=== PATIENT | male | born 1975 | race Caucasian/White ===

== ENCOUNTER 2016-06-14 19:59 | Inpatient (IN) | payer MEDICAID ==
[~2016-06-14] VITALS: Ht 167.6 cm; Wt 102.1 kg
[2016-06-14] MEDS ORDERED: OPTIRAY 350 100 ML VIAL HMH IV ONE (20:00)
[2016-06-14] MEDS ORDERED: ASPIRIN 81 MG CHEW TAB ONE (21:48)
[2016-06-14] MEDS ORDERED: SALINE FLUSH 10 ML FLUSH PRN (22:35)
[2016-06-14] MEDS ORDERED: ACETAMINOPHEN 325 MG TAB PO PRN (22:35)
[2016-06-14] MEDS ORDERED: LORAZEPAM 2 MG/ML VIAL ONE (22:40)
[2016-06-14] MEDS ORDERED: LORAZEPAM 2 MG/ML VIAL IV PRN (22:50)
[2016-06-14] MEDS ORDERED: ONDANSETRON 4 MG VIAL IV PRN (22:50)
[2016-06-14] MEDS ORDERED: D5-1/2-NS W/KCL 20MEQ/L 1,000 ML IV SCH (22:50)
[2016-06-14] MEDS ORDERED: FOLIC ACID INJ 1 MG in SODIUM CHLORIDE 0.9% 50 ML IV ONE (22:50)
[2016-06-14] MEDS: Atorvastatin 20 MG TAB PO SCH (22:55)
[2016-06-15] VITALS (14 sets, daily range): BP systolic 157–201; RESP 16–24; TEMP 97.6–98.6; Ht 167.6 cm; Wt 102.1 kg
[2016-06-15] MEDS ORDERED: D5-1/2-NS W/KCL 20MEQ/L 1,000 ML IV SCH (01:05)
[2016-06-15] MEDS: Atorvastatin 20 MG TAB PO SCH ×2 (01:40→20:10)
[2016-06-15] MEDS: SODIUM CHLORIDE 0.9% FLUSH BAG 500 ML IV SCH ×2 (01:40→20:07)
[2016-06-15] MEDS: SALINE FLUSH 10 ML FLUSH SCH ×2 (08:00→20:11)
[2016-06-15] MEDS ORDERED: MISSING DOSE XX ONE (08:05)
[2016-06-15] MEDS: Aspirin 325 MG TAB PO SCH (08:30)
[2016-06-15] MEDS: MULTIVITS/MINERALS (THERAGRAN M) TAB PO SCH (08:30)
[2016-06-15] MEDS: FOLIC ACID 1 MG TAB PO SCH (08:30)
[2016-06-15] MEDS ORDERED: METOPROLOL XL 25 MG TAB PO SCH (09:00)
[2016-06-15] MEDS: amLODIPine 10 MG TAB PO SCH (10:21)
[2016-06-15] MEDS: THIAMINE 100 MG TAB PO SCH (12:49)
[2016-06-15] MEDS: HCTZ 25 MG TAB PO SCH (15:48)
[2016-06-15] MEDS: METOPROLOL XL 100 MG TAB PO SCH (15:48)
[2016-06-15] MEDS: LISINOPRIL 20 MG TAB PO SCH (15:48)
[2016-06-16] VITALS (11 sets, daily range): BP systolic 142–173; RESP 16–20; TEMP 97.1–98.1
[2016-06-16] MEDS: FOLIC ACID 1 MG TAB PO SCH (08:50)
[2016-06-16] MEDS: HCTZ 25 MG TAB PO SCH (08:50)
[2016-06-16] MEDS: MULTIVITS/MINERALS (THERAGRAN M) TAB PO SCH (08:50)
[2016-06-16] MEDS: Aspirin 325 MG TAB PO SCH (08:50)
[2016-06-16] MEDS: LISINOPRIL 20 MG TAB PO SCH (08:50)
[2016-06-16] MEDS: SALINE FLUSH 10 ML FLUSH SCH ×2 (08:50→20:30)
[2016-06-16] MEDS: THIAMINE 100 MG TAB PO SCH (08:50)
[2016-06-16] MEDS: METOPROLOL XL 100 MG TAB PO SCH (08:50)
[2016-06-16] MEDS: amLODIPine 10 MG TAB PO SCH (08:50)
[2016-06-16] MEDS ORDERED: METOPROLOL XL 100 MG TAB PO ONE (09:25)
[2016-06-16] MEDS ORDERED: KCL CR 20 MEQ TAB PO ONE (09:30)
[2016-06-16] MEDS: SPIRONOLACTONE 25 MG TAB PO SCH (10:03)
[2016-06-16] MEDS: SODIUM CHLORIDE 0.9% FLUSH BAG 500 ML IV SCH (19:11)
[2016-06-16] MEDS: Atorvastatin 20 MG TAB PO SCH (20:30)
[2016-06-17 02:40] VITALS: BP_SYST 138; RESP 18; TEMP 98
[2016-06-17 07:47] VITALS: BP_SYST 115; RESP 18; TEMP 98.2
[2016-06-17] MEDS: LISINOPRIL 20 MG TAB PO SCH (08:53)
[2016-06-17] MEDS: MULTIVITS/MINERALS (THERAGRAN M) TAB PO SCH (08:53)
[2016-06-17] MEDS: Aspirin 325 MG TAB PO SCH (08:53)
[2016-06-17] MEDS: THIAMINE 100 MG TAB PO SCH (08:53)
[2016-06-17] MEDS: amLODIPine 10 MG TAB PO SCH (08:53)
[2016-06-17] MEDS: FOLIC ACID 1 MG TAB PO SCH (08:53)
[2016-06-17] MEDS: SALINE FLUSH 10 ML FLUSH SCH (08:54)
[2016-06-17] MEDS: HCTZ 25 MG TAB PO SCH (09:00)
[2016-06-17] MEDS ORDERED: METOPROLOL XL 100 MG TAB PO SCH (09:00)
[2016-06-17] MEDS: SPIRONOLACTONE 25 MG TAB PO SCH (09:00)
[2016-06-17 11:26] VITALS: BP_SYST 163; RESP 18; TEMP 98
[2016-06-17 12:16] VITALS: BP_SYST 163; RESP 18; TEMP 98
[2016-06-18] MEDS ORDERED: THIAMINE 100 MG in SODIUM CHLORIDE 0.9% 50 ML IV SCH (09:00)
== END 2016-06-17 14:00 | disposition home or self-care (01) | DRG 69 ==
LOC: ENRESERVTM → ENRESERVDT → ER 19:59 → EMR 22:34 → ENPENDDIS 22:34 → PCU 06-15 00:22
PROVIDERS: ADMIT Hospitalist; ATTEND Hospitalist
DX: G45.9 Transient cerebral ischemic attack, unspecified (principal); I13.0 Hypertensive heart and chronic kidney disease with heart failure and stage 1 through stage 4 chronic kidney disease, or unspecified chronic kidney disease; I50.20 Unspecified systolic (congestive) heart failure; E86.0 Dehydration; I16.0 Hypertensive urgency; N18.9 Chronic kidney disease, unspecified; F10.20 Alcohol dependence, uncomplicated; R07.9 Chest pain, unspecified; G62.9 Polyneuropathy, unspecified; Z72.0 Tobacco use
CPT/HCPCS: 36415; 70450; 70496; 70498; 70551; 71010; 72141; 80047; 80048; 80053; 80061; 80307; 80320; 81001; 82947; 83735; 84100; 84484; 85014; 85025; 85610; 93005; 93306; 93880; 94799; 96374; 96375; 99233; 99239